=== PATIENT | male | born 1990 | race Caucasian/White ===

== ENCOUNTER 2018-04-23 12:54 | Emergency (ER) | payer OTHER ==
--- NOTE | 2018-04-23 14:34 | ED ---
Upper Extremity Pain - HPI Summary HPI Summary: Patient is a 28-year-old male who presents emergency department for left shoulder injury that occurred just prior to arrival. Patient states he was taking a whole for a work and when he tried to climb out of home he felt a pop in his left shoulder. Other injuries were sustained. Patient has no past medical history. Patient has never had injured his shoulder before. Movement makes symptoms worse. Nothing makes symptoms better. - History of Current Complaint Chief Complaint: EDShoulderClavicleInj Stated Complaint: LEFT SHOULDER INJURY Time Seen by Provider: 04/23/18 14:32 Hx Obtained From: Patient - Allergies/Home Medications Allergies/Adverse Reactions: Allergies Allergy/AdvReac Type Severity Reaction Status Date / Time No Known Allergies Allergy Verified 04/23/18 13:01 PMH/Surg Hx/FS Hx/Imm Hx Previously Healthy: Yes Endocrine/Hematology History: Denies: Hx Diabetes Cardiovascular History: Denies: Hx Congestive Heart Failure, Hx Hypertension History: Denies: Hx Renal Disease Psychiatric History: Denies: Hx Eating Disorder Infectious Disease History: No Infectious Disease History: Denies: Traveled Outside the [place] in Last 30 Days - Social History Occupation: Employed Full-time Lives: With Family Alcohol Use: Rare Substance Use Type: Reports: None Smoking Status (MU): Never Smoked Tobacco Review of Systems Positive: Other - left shoulder pain and deformity Skin: Negative Positive: Paresthesia All Other Systems Reviewed And Are Negative: Yes Physical Exam Triage Information Reviewed: Yes Vital Signs On Initial Exam: Initial Vitals Temp Pulse Resp BP Pulse Ox 99.8 F 70 16 140/100 98 04/23/18 12:55 04/23/18 12:55 04/23/18 12:55 04/23/18 12:55 04/23/18 12:55 Vital Signs Reviewed: Yes Appearance: Positive: Well-Appearing - Pt. sitting on bed holding left shoulder. Appears uncomfortable but nontoxic. Skin: Positive: Warm, Dry Head/Face: Positive: Normal Head/Face Inspection Eyes: Positive: Normal, EOMI Neck: Positive: Supple, Nontender Musculoskeletal: Positive: Other - Good left radial pulse. 5/5 strength in left hand. Obvoius deformity to left shoulder. No wounds. No distal injuries. Neurological: Positive: Normal, CN Intact II-III Psychiatric: Positive: Affect/Mood Appropriate Diagnostics - Vital Signs Vital Signs Temp Pulse Resp BP Pulse Ox 04/23/18 12:55 99.8 F 70 16 140/100 98 - Laboratory Lab Statement: Any lab studies that have been ordered have been reviewed, and results considered in the medical decision making process. Course/Dx - Course Course Of Treatment: Pt. presenting for likely left shoulder dislocation. Pt. would like to reduce shoulder without pain medication. Xray confirms anterior dislocation with likely hill sach deformity. Shoulder reduction performed by Mode Valderrama PA-C please see his progress note. Shoulder immobilizer placed. Repeat xray shows reduction. Pt tolerated well. Will have pt. f.u with orthopedics. Ice. Tylenol or Motrin for pain as directed. Keep sling in place. Work excuse given. Pt. understands and agrees with plan. - Diagnoses Differential Diagnosis/HQI/PQRI: Positive: Fracture (Closed), Strain, Sprain Provider Diagnoses: Shoulder dislocation, Hill Sachs deformity, left Discharge - Sign-Out/Discharge Documenting (check all that apply): Patient Departure - Discharge Plan Condition: Improved Disposition: HOME Patient Education Materials: Shoulder Dislocation (ED), Scapular Fracture (ED) Forms: *Work Release Referrals: Rahel Hoyos MD [Medical Doctor] - Anatoly Velasco MD [Primary Care Provider] - Additional Instructions: Call Dr. Hoyos's office tomorrow to schedule a follow up appointment Ice intermittently Tylenol or Motrin for pain as directed Keep splint in place Return to ER if symptoms change or worsen - Billing Disposition and Condition Condition: IMPROVED Disposition: Home
[2018-04-23] MEDS ORDERED: Ibuprofen TAB* 800 MG PO ONE (15:38)
--- NOTE | 2018-04-23 15:43 | PN ---
Progress Note - Progress Note Date of Service: 04/23/18 Note: I performed left shoulder reduction without sedation. Pt refused sedation or pain medication. Reduction performed using downward longitudinal pressure with counter traction provided by Galdino using sheet. PMS intact post reduction. Reduction confirmed by x-ray.
[2018-04-23 16:30] VITALS: BP 141/87
== END 2018-04-23 16:29 | disposition home or self-care (01) ==
LOC: ED 12:54
DX: S43.015A Anterior dislocation of left humerus, initial encounter (principal); Y93.39 Activity, other involving climbing, rappelling and jumping off; Y92.9 Unspecified place or not applicable; Y99.0 Civilian activity done for income or pay
CPT/HCPCS: 23650; 99282; A9270-GY